=== PATIENT | female | born 1930 | race Caucasian/White ===

== ENCOUNTER 2018-11-02 14:55 | Inpatient (IN) | payer MEDICARE, BC | END 2018-11-16 13:20 | disposition hospice, inpatient (51) | LOC: SUR 3N 11-09 04:50 → ER 14:55 → ED HOLD 17:34 → CICU 2S 23:41 | PROC: 0DBL0ZZ Excision of Transverse Colon, Open Approach (ICD-10-PCS; principal; 2018-11-02 21:43) | PROC: 0DTF0ZZ Resection of Right Large Intestine, Open Approach (ICD-10-PCS; 2018-11-02 21:43) | PROC: 0DNF0ZZ Release Right Large Intestine, Open Approach (ICD-10-PCS; 2018-11-02 21:43) | DX: A41.9 Sepsis, unspecified organism (principal); K55.031 Focal (segmental) acute (reversible) ischemia of large intestine; R65.21 Severe sepsis with septic shock; N17.9 Acute kidney failure, unspecified ==